=== PATIENT | male | born 1995 | race Caucasian/White ===

== ENCOUNTER 2018-08-05 12:17 | Emergency (ER) | payer OTHER ==
[2018-08-05 12:31] VITALS: BP 133/60
[2018-08-05 12:50] LABS: Influenza A Molecular POSITIVE (Negative)
--- NOTE | 2018-08-05 12:54 | UC ---
UC General HPI - HPI Summary HPI Summary: 3 DAY HX BODY ACHES PLUS FEVER/CHILLS AND COUGH. + FATIGUE. TX WITH IB. + ASTHMA AND WHEEZING WITH SOB. WORSENING S/S. - History of Current Complaint Chief Complaint: UCEye Stated Complaint: EYE CONCERNS, FATIGUE Time Seen by Provider: 08/05/18 12:46 Hx Obtained From: Patient Timing: Constant Pain Intensity: 8 Associated Signs & Symptoms: Negative: Chest Pain, Diarrhea, Vomiting - Allergy/Home Medications Allergies/Adverse Reactions: Allergies Allergy/AdvReac Type Severity Reaction Status Date / Time No Known Allergies Allergy Verified 08/05/18 12:25 PMH/Surg Hx/FS Hx/Imm Hx Respiratory History: Asthma - Surgical History Surgical History: None - Social History Occupation: Employed Full-time Alcohol Use: Occasionally Substance Use Type: None Smoking Status (MU): Former Smoker Amount Used/How Often: 3-4 cigs per day Have You Smoked in the Last Year: Yes When Did the Patient Quit Smoking/Using Tobacco: 07/07/18 - Immunization History Vaccination Up to Date: Yes Review of Systems All Other Systems Reviewed And Are Negative: Yes Constitutional: Positive: Fever, Chills, Fatigue Skin: Positive: Negative Eyes: Positive: Negative ENT: Positive: Sinus Congestion Respiratory: Positive: Shortness Of Breath, Cough Cardiovascular: Positive: Negative Gastrointestinal: Positive: Negative Genitourinary: Positive: Negative Motor: Positive: Negative Neurovascular: Positive: Negative Musculoskeletal: Positive: Myalgia Neurological: Positive: Headache Psychological: Positive: Negative Is Patient Immunocompromised?: No Physical Exam Triage Information Reviewed: Yes Appearance: Ill-Appearing - BUT NON TOXIC Vital Signs: Initial Vital Signs Temp 99.9 F 08/05/18 12:26 Pulse 88 08/05/18 12:26 Resp 16 08/05/18 12:26 BP 133/60 08/05/18 12:26 Pulse Ox 98 08/05/18 12:26 Vital Signs Reviewed: Yes Eyes: Positive: Conjunctiva Clear ENT: Positive: Pharynx normal, Nasal congestion, Nasal drainage - CLEAR, TMs normal Neck: Positive: Supple, Nontender, No Lymphadenopathy Respiratory: Positive: No respiratory distress, Decreased breath sounds Cardiovascular: Positive: RRR, No Murmur Abdomen Description: Positive: Nontender, No Organomegaly, Soft Bowel Sounds: Positive: Present Musculoskeletal: Positive: ROM Intact Neurological: Positive: Alert Psychological: Positive: Age Appropriate Behavior Skin Exam: Normal Diagnostics - Laboratory Diagnostic Studies Completed/Ordered: RAPID FLU A POSITIVE. Course/Dx - Course Course Of Treatment: HX ASTHMA AND WORSENING THUS WILL TX WITH TAMIFLU AND FOR ASTHMA FLARE. - Diagnoses Provider Diagnosis: Influenza A Discharge - Sign-Out/Discharge Documenting (check all that apply): Patient Departure All imaging exams completed and their final reports reviewed: No Studies - Discharge Plan Condition: Stable Disposition: HOME Prescriptions: Albuterol HFA INHALER* [Ventolin HFA Inhaler*] 2 puff INH Q6H #1 mdi Oseltamivir CAP* [Tamiflu CAP*] 75 mg PO BID 5 Days #10 cap predniSONE [Prednisone 20 MG TAB] 40 mg PO DAILY 5 Days #10 tablet Patient Education Materials: Influenza (DC) Forms: *Work Release Referrals: LILIA Norris [Medical Doctor] - 7 Days - Billing Disposition and Condition Condition: STABLE Disposition: Home
== END 2018-08-05 13:12 | disposition home or self-care (01) ==
LOC: UCCORT 12:17
DX: J10.1 Influenza due to other identified influenza virus with other respiratory manifestations (principal); J45.909 Unspecified asthma, uncomplicated; Z87.891 Personal history of nicotine dependence
CPT/HCPCS: 99212; G0463